=== PATIENT | female | born 1995 | race African-American/Black ===

== ENCOUNTER 2018-10-20 17:19 | Emergency (ER) | payer OTHER ==
[2018-10-20] MEDS ORDERED: METOCLOPRAMIDE 10 MG/2mL INJ ONE (18:02)
[2018-10-20] MEDS ORDERED: NA CHLORIDE 0.9% 1,000 ML ONE (18:03)
[2018-10-20 18:13] LABS: Urine Blood NEGATIVE (NEG); Urine Glucose NEGATIVE (NEG); Urine Protein TRACE (NEG); Urine pH 5.5 (5.0-7.0)
[2018-10-20 18:14] LABS: Absolute Lymphocytes (CBC) 2.4 K/uL (0.7-4.9); Basophils % 0.6 % (0-1.3); Eosinophils % 0.8 % (0-4.4); Hematocrit 40.9 % (36.0-45.0); Lymphocytes % 21.5 % (15.3-44.8); Monocytes % 7.9 % (3.3-12.3); RBC Red Blood Cell Count 4.82 M/uL (3.86-4.86)
[2018-10-20 18:28] LABS: Urine Bacteria <20 /HPF (<20); Urine Culture Reflex Order REFLEXED; Urine Mucus 2+ /HPF (NONE SEEN); Urine RBC <5 /HPF (NONE SEEN)
[2018-10-20 18:28] LABS: ALT/SGPT 107 U/L (12-78); AST/SGOT 28 U/L (15-37); Albumin 3.7 g/dL (3.4-5.0); Alkaline Phosphatase 101 U/L (45-117); BUN Blood Urea Nitrogen 7 mg/dL (7-18); Bicarbonate 23 mmol/L (21-32); Bilirubin Direct 0.1 mg/dL (0-0.2); Bilirubin Total 0.3 mg/dL (0.2-1.0); Glucose Level 83 mg/dL (74-106); Lipase 103 U/L (73-393); Potassium 3.5 mmol/L (3.5-5.1); Protein, Total 8.5 g/dL (6.4-8.2); Sodium Level 138 mmol/L (136-145)
--- NOTE | 2018-10-20 20:24 | ER ---
Nurse's Notes [facility] Name: Nayana Lemon Age: 22 yrs Sex: Female : 1995 Arrival Date: 10/20/2018 Time: 17:22 Bed 13 Private MD: Diagnosis: Vomiting;Urinary tract infection, site not specified Presentation: 10/20 17:32 Presenting complaint: Patient states: I am about 9 weeks and having a lot of la1 nausea and vomiting. Transition of care: patient was not received from another setting of care. Onset of symptoms was October 20, 2018. Risk Assessment: Do you want to hurt yourself or someone else? Patient reports no desire to harm self or others. Initial Sepsis Screen: Does the patient meet any 2 criteria? No. Patient's initial sepsis screen is negative. Does the patient have a suspected source of infection? No. Patient's initial sepsis screen is negative. Care prior to arrival: None. 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 - Social history:: Smoking status: Patient/guardian denies using tobacco. - Ebola Screening: : No symptoms or risks identified at this time. Screenin:05 Abuse screen: Denies threats or abuse. Denies injuries from another. Nutritional aj screening: No deficits noted. Tuberculosis screening: No symptoms or risk factors identified. Fall Risk None identified. Assessment: 18:05 General: Appears in no apparent distress. comfortable, Behavior is calm, cooperative, aj appropriate for age. Pain: Denies pain. Neuro: Level of Consciousness is awake, alert, obeys commands, Oriented to person, place, time, situation, Appropriate for age. Respiratory: Airway is patent Respiratory effort is even, unlabored, Respiratory pattern is regular, symmetrical. GI: Abdomen is non-distended, obese, Reports nausea, vomiting. Derm: Skin is intact, is healthy with good turgor, Skin is pink, warm \T\ dry. normal. Vital Signs: 17:30 BP 128 / 87; Pulse 74; Resp 16; Temp 97.4; Pulse Ox 98% on R/A; Weight 113.4 kg; Height la1 5 ft. 8 in. (172.72 cm); 18:45 BP 124 / 74; Pulse 81; Resp 16; Pulse Ox 99% on R/A; aj 20:13 BP 122 / 70; Pulse 79; Resp 19; Temp 97.8(O); Pulse Ox 99% on R/A; Pain 0/10; ls4 17:30 Body Mass Index 38.01 (113.40 kg, 172.72 cm) la1 ED Course: 17:22 Patient arrived in ED. rg4 17:31 Ko Workman PA is PHCP. jmm 17:31 Darien Morin MD is Attending Physician. jmm 17:31 Arm band placed on right wrist. la1 17:32 Triage completed. la1 17:33 Ko Workman PA is PHCP. olvin 17:33 Darien Morin MD is Attending Physician. jmm 17:45 Marya Langford, RN is Primary Nurse. aj 17:55 Urine collected: clean catch specimen, clear, elder colored. jp3 18:00 Initial lab(s) drawn, by ED staff, sent to lab. Patient maintains SpO2 saturation jp3 greater than 95% on room air. 18:05 Patient has correct armband on for positive identification. aj 18:05 No provider procedures requiring assistance completed. Inserted saline lock: 22 gauge aj in right hand, using aseptic technique. Blood collected. 18:06 Urine Microscopic Only Sent. em 19:53 Basic Metabolic Panel Sent. ls4 19:53 CBC with Diff Sent. ls4 19:53 Creatinine for Radiology Sent. ls4 20:35 IV discontinued, intact, bleeding controlled, No redness/swelling at site. ls4 Administered Medications: 18:04 Drug: NS 0.9% 1000 ml Route: IV; Rate: 1 bolus; Site: right hand; aj 19:54 Follow up: IV Status: Completed infusion; IV Intake: 1000ml ls4 18:04 Drug: Reglan 10 mg Route: IVP; Site: right hand; aj 19:53 Follow up: Response: No adverse reaction; Marked relief of symptoms ls4 Intake: 19:54 IV: 1000ml; Total: 1000ml. ls4 Outcome: 20:23 Discharge ordered by . olvin 20:49 Discharged to home ambulatory. ls4 20:49 Condition: good 20:49 Discharge instructions given to patient, family, Instructed on discharge instructions, follow up and referral plans. medication usage, Demonstrated understanding of instructions, follow-up care, medications. 20:50 Patient left the ED. ls4 Addendum: 10/23/2018 08:15 Addendum: Culture Results: Positive urine culture. Bacteria is resistant to, has s s intermediate sensitivity, or is not tested against prescribed antibiotics. Report given to KOURTNEY for further evaluation and then to display coordinator for follow up with patient. 16:31 Addendum: Culture Results: Phone call Attempt #1 No answer, Left VM. s s 16:32 Addendum: Culture Results: Phone call Attempt #1 Pt called back. Macrobid 100 mg PO BID s s x 10 days # 20 per Jelena Benavides NP, called in to pharmacy of choice, [facility]. Signatures: Marya Langford, RN RN Ko Salas PA PA jmm Munoz, Edgar, [employer] Georgette Santiago, MOISES RN ss Peng Melvin RN RN alfredo1 Kaylan Pinedo4 Jonny Del Castillo jp3 Becca Linda RN RN ls4
--- NOTE | 2018-10-20 20:24 | EDPHYS ---
Physician Documentation [facility] Name: Nayana Lemon Age: 22 yrs Sex: Female : 1995 Arrival Date: 10/20/2018 Time: 17:22 Bed 13 Private MD: ED Physician Darien Morin HPI: 10/20 17:41 This 22 yrs old Black Female presents to ER via Ambulatory with complaints of Vomiting. m 17:41 The patient presents to the emergency department with nausea, vomiting. Onset: The [facility] symptoms/episode began/occurred today. Possible causes: . The symptoms are aggravated by water The symptoms are alleviated by nothing. This is a 22 year old that presents to the ED with complaints of nausea and vomiting. Patient states taking otc vitamin b6 without relief. Patient denies abdominal pain, denies vaginal bleeding. Patient states she is able to tolerate tea and food but unable to drink water without vomiting. . 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 - Social history:: Smoking status: Patient/guardian denies using tobacco. - Ebola Screening: : No symptoms or risks identified at this time. ROS: 17:41 Constitutional: Negative for fever, chills, and weight loss. jmm 17:41 Abdomen/GI: Positive for nausea and vomiting, Negative for abdominal pain. 17:41 : Positive for urinary symptoms, Negative for vaginal bleeding. 17:41 All other systems are negative. Exam: 17:41 Constitutional: This is a well developed, well nourished patient who is awake, alert, jmm and in no acute distress. Head/Face: atraumatic. Eyes: EOMI, no conjunctival erythema appreciated ENT: Moist Mucus Membranes Neck: Trachea midline, Supple Chest/axilla: Normal chest wall appearance and motion. Cardiovascular: Regular rate and rhythm. No edema appreciated Respiratory: Normal respirations, no respiratory distress appreciated 17:41 Back: Normal ROM Skin: General appearance color normal MS/ Extremity: Moves all extremities, no obvious deformities appreciated, no edema noted to the lower extremities Neuro: Awake and alert, normal gait Psych: Behavior is normal, Mood is normal, Patient is cooperative and pleasant 17:41 Abdomen/GI: Inspection: abdomen appears normal, Bowel sounds: normal, Palpation: abdomen is soft and non-tender, in all quadrants. Vital Signs: 17:30 BP 128 / 87; Pulse 74; Resp 16; Temp 97.4; Pulse Ox 98% on R/A; Weight 113.4 kg; Height la1 5 ft. 8 in. (172.72 cm); 18:45 BP 124 / 74; Pulse 81; Resp 16; Pulse Ox 99% on R/A; aj 20:13 BP 122 / 70; Pulse 79; Resp 19; Temp 97.8(O); Pulse Ox 99% on R/A; Pain 0/10; ls4 17:30 Body Mass Index 38.01 (113.40 kg, 172.72 cm) la1 MDM: 17:41 Patient medically screened. [facility] 20:22 Data reviewed: vital signs, nurses notes. Counseling: I had a detailed discussion with [facility] the patient and/or guardian regarding: the historical points, exam findings, and any diagnostic results supporting the discharge/admit diagnosis, lab results, the need for outpatient follow up, to return to the emergency department if symptoms worsen or persist or if there are any questions or concerns that arise at home. ED course: Patient is advised to follow up with her pcp. Patient is able to tolerate po in the ED. Patient is alert and non toxic in appearance in the ED. Patient understood and agrees with the plan of care. . 20:22 ED course: Patient has no abdominal pain. I do not suspect an acute intrabdominal [facility] process. . 10/20 17:42 Order name: Basic Metabolic Panel [facility] 10/20 17:42 Order name: CBC with Diff [facility] 10/20 17:42 Order name: Creatinine for Radiology [facility] 10/20 17:42 Order name: Hepatic Function; Complete Time: 18:30 [facility] 10/20 17:42 Order name: Lipase; Complete Time: 18:30 [facility] 10/20 17:43 Order name: Basic Metabolic Panel; Complete Time: 18:30 [facility] 10/20 17:43 Order name: CBC with Automated Diff; Complete Time: 18:30 [facility] 10/20 17:43 Order name: Creatinine (Radiology Only); Complete Time: 18:30 [facility] 10/20 18:04 Order name: Urine Microscopic Only; Complete Time: 18:30 em 10/20 18:11 Order name: Urine Dipstick--Ancillary (enter results); Complete Time: 18:15 ag4 10/20 18:11 Order name: Urine --Ancillary (enter results); Complete Time: 18:15 ag4 10/20 18:30 Order name: Urine Culture [facility] 10/20 17:42 Order name: IV Saline Lock; Complete Time: 18:04 [facility] 10/20 17:42 Order name: Labs collected and sent; Complete Time: 18:04 [facility] 10/20 17:42 Order name: Urine Dipstick-Ancillary (obtain specimen); Complete Time: 18:04 [facility] 10/20 19:25 Order name: PO challenge; Complete Time: 19:53 [facility] Administered Medications: 18:04 Drug: NS 0.9% 1000 ml Route: IV; Rate: 1 bolus; Site: right hand; aj 19:54 Follow up: IV Status: Completed infusion; IV Intake: 1000ml 4 18:04 Drug: Reglan 10 mg Route: IVP; Site: right hand; aj 19:53 Follow up: Response: No adverse reaction; Marked relief of symptoms ls4 Disposition: 10/20/18 20:23 Discharged to Home. Impression: Vomiting, Urinary tract infection, site not specified. - Condition is Stable. - Discharge Instructions: Hyperemesis Gravidarum, Eating Plan for Hyperemesis Gravidarum, and Urinary Tract Infection, Asymptomatic Bacteriuria, Female. - Prescriptions for Zofran ODT 4 mg Oral tablet,disintegrating - place 1 tablet by TRANSLINGUAL route every 4-6 hours; 20 tablet. Cephalexin 500 mg Oral Capsule - take 1 capsule by ORAL route every 12 hours for 10 days; 20 capsule. - Medication Reconciliation Form, Thank You Letter, Antibiotic Education, Prescription Opioid Use form. - Follow up: Private Physician; When: 2 - 3 days; Reason: Recheck today's complaints, Continuance of care, Re-evaluation by your physician. Addendum: 10/22/2018 09:45 Co-signature as Attending Physician, Darien Morin MD I agree with the assessment and c nash plan of care. Signatures: Dispatcher [employer] [facility] Marya Langford RN RN aj Anderson, Corey, MD MD cha Mickail, Joel, PA PA jmm Attema, Lee, RN RN la1 Becca Linda RN RN ls4 Corrections: (The following items were deleted from the chart) 10/20 20:23 20:23 10/20/2018 20:23 Discharged to Home. Impression: Vomiting. Condition is Stable. [facility] Forms are Medication Reconciliation Form, Thank You Letter, Antibiotic Education, Prescription Opioid Use. Follow up: Private Physician; When: 2 - 3 days; Reason: Recheck today's complaints, Continuance of care, Re-evaluation by your physician. [facility] 20:50 20:23 10/20/2018 20:23 Discharged to Home. Impression: Vomiting; Urinary tract ls4 infection, site not specified. Condition is Stable. Forms are Medication Reconciliation Form, Thank You Letter, Antibiotic Education, Prescription Opioid Use. Follow up: Private Physician; When: 2 - 3 days; Reason: Recheck today's complaints, Continuance of care, Re-evaluation by your physician. [facility]
[2018-10-20 21:00] VITALS: O2SAT 99
[2018-10-20 21:02] VITALS: BP 122/70; TEMP 97.8
== END 2018-10-20 20:50 | disposition home or self-care (01) ==
LOC: ER 17:19
DX: O23.41 Unspecified infection of urinary tract in pregnancy, first trimester (principal); Z3A.09 9 weeks gestation of pregnancy
CPT/HCPCS: 36415; 80048; 80076; 81003; 81015; 81025; 83690; 85025; 87077; 87086; 87088; 87186; 96361; 96374; 99284; J2765; J7030

== ENCOUNTER 2022-04-03 14:20 | Emergency (ER) | payer OTHER ==
--- NOTE | 2022-04-03 14:48 | ER ---
Nurse's Notes [facility] Name: Nayana Lemon Age: 26 yrs Sex: Female : 1995 Arrival Date: 04/03/2022 Time: 14:25 Bed IW1 Private MD: Diagnosis: Acute pharyngitis, unspecified Presentation: 04/03 14:31 Chief complaint: Patient states: Sore throat X 4 days. Coronavirus screen: At this ld1 time, the client does not indicate any symptoms associated with coronavirus-19. Ebola Screen: No symptoms or risks identified at this time. Initial Sepsis Screen: Does the patient meet any 2 criteria? No. Patient's initial sepsis screen is negative. Does the patient have a suspected source of infection? No. Patient's initial sepsis screen is negative. Risk Assessment: Do you want to hurt yourself or someone else? Patient reports no desire to harm self or others. Onset of symptoms was April 03, 2022 at 14:32. 14:31 Method Of Arrival: Ambulatory ld1 14:31 Acuity: MEGAN 4 ld1 Triage Assessment: 14:32 General: Appears in no apparent distress. comfortable, Behavior is calm, cooperative, ld1 appropriate for age. Pain: Denies pain. EENT: Reports pain in uvula. Neuro: Level of Consciousness is awake, alert, obeys commands, Oriented to person, place, time, situation. Cardiovascular: Capillary refill < 3 seconds Patient's skin is warm and dry. Respiratory: Airway is patent Respiratory effort is even, unlabored. GI: Abdomen is round non-distended. : No signs and/or symptoms were reported regarding the genitourinary system. Derm: No signs and/or symptoms reported regarding the dermatologic system. Musculoskeletal: No signs and/or symptoms reported regarding the musculoskeletal system. 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 - Social history:: Smoking status: Patient denies any tobacco usage or history of. Patient/guardian denies using alcohol. Screenin:33 Abuse screen: Denies threats or abuse. Denies injuries from another. Nutritional ld1 screening: No deficits noted. Tuberculosis screening: No symptoms or risk factors identified. Fall Risk None identified. Assessment: 14:33 Reassessment: See triage assessment. ld1 15:23 Respiratory: Breath sounds are clear bilaterally. ld1 Vital Signs: 14:31 BP 131 / 82; Pulse 76; Resp 18; Temp 98.1(TE); Pulse Ox 100% on R/A; Weight 117.93 kg; ld1 Height 5 ft. 8 in. (172.72 cm); Pain 0/10; 14:31 Body Mass Index 39.53 (117.93 kg, 172.72 cm) ld1 ED Course: 14:25 Patient arrived in ED. rg4 14:27 Ko Workman PA is PHCP. olvin 14:27 Darien Morin MD is Attending Physician. [facility] 14:32 Triage completed. ld1 14:32 Arm band placed on right wrist. ld1 14:33 Patient has correct armband on for positive identification. Bed in low position. Call ld1 light in reach. Side rails up X2. Pulse ox on. NIBP on. Door closed. Noise minimized. 14:33 No provider procedures requiring assistance completed. Patient did not have IV access ld1 during this emergency room visit. 14:38 Strep Sent. ld1 Administered Medications: No medications were administered Medication: 14:33 VIS not applicable for this client. ld1 Outcome: 14:47 Discharge ordered by . [facility] 15:23 Discharged to home ambulatory. ld1 15:23 Condition: stable 15:23 Discharge instructions given to patient, Instructed on discharge instructions, follow up and referral plans. medication usage, Demonstrated understanding of instructions, follow-up care, medications, Prescriptions given X 1. 15:23 Patient left the ED. ld1 Signatures: Ko Workman PA PA jmm Garcia, Rubi rg4 Susie Carrasco, RN RN ld1
--- NOTE | 2022-04-03 14:48 | EDPHYS ---
Physician Documentation [facility] Name: Nayana Lemon Age: 26 yrs Sex: Female : 1995 Arrival Date: 04/03/2022 Time: 14:25 Bed IW1 Private MD: ED Physician Darien Morin HPI: 04/03 14:34 This 26 yrs old Black Female presents to ER via Ambulatory with complaints of Sore jmm Throat. 14:34 The patient presents with sore throat. Onset: The symptoms/episode began/occurred jmm gradually. Modifying factors: The symptoms are alleviated by nothing, the symptoms are aggravated by nothing. Associated signs and symptoms: Pertinent negatives fever. The patient has experienced similar episodes in the past. 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 - Social history:: Smoking status: Patient denies any tobacco usage or history of. Patient/guardian denies using alcohol. ROS: 14:34 Constitutional: Negative for fever, chills, and weight loss, Cardiovascular: Negative jmm for chest pain, palpitations, and edema, Respiratory: Negative for shortness of breath, cough, wheezing, and pleuritic chest pain. 14:34 ENT: Positive for sore throat. 14:34 All other systems are negative. Exam: 14:34 Constitutional: This is a well developed, well nourished patient who is awake, alert, jmm and in no acute distress. Head/Face: atraumatic. Eyes: EOMI, no conjunctival erythema appreciated 14:34 Neck: Trachea midline, Supple Chest/axilla: Normal chest wall appearance and motion. Cardiovascular: Regular rate and rhythm. No edema appreciated Respiratory: Normal respirations, no respiratory distress appreciated Abdomen/GI: Non distended Back: Normal ROM Skin: General appearance color normal MS/ Extremity: Moves all extremities, no obvious deformities appreciated, no edema noted to the lower extremities Neuro: Awake and alert Psych: Behavior is normal, Mood is normal, Patient is cooperative and pleasant 14:34 ENT: Posterior pharynx: erythema, that is mild. Vital Signs: 14:31 BP 131 / 82; Pulse 76; Resp 18; Temp 98.1(TE); Pulse Ox 100% on R/A; Weight 117.93 kg; ld1 Height 5 ft. 8 in. (172.72 cm); Pain 0/10; 14:31 Body Mass Index 39.53 (117.93 kg, 172.72 cm) ld1 MDM: 14:34 Counseling: I had a detailed discussion with the patient and/or guardian regarding: the [facility] historical points, exam findings, and any diagnostic results supporting the discharge/admit diagnosis, lab results, the need for outpatient follow up, to return to the emergency department if symptoms worsen or persist or if there are any questions or concerns that arise at home. 14:37 Patient medically screened. [facility] 14:39 Data reviewed: vital signs, nurses notes. [facility] 04/03 14:33 Order name: Strep; Complete Time: 17:43 [facility] 04/03 15:19 Order name: Throat Culture EDMS Administered Medications: No medications were administered Disposition Summary: 04/03/22 14:47 Discharge Ordered Location: Home [facility] Condition: Stable [facility] Diagnosis - Acute pharyngitis, unspecified [facility] Followup: [facility] - With: Private Physician - When: 2 - 3 days - Reason: Recheck today's complaints, Continuance of care, Re-evaluation by your physician Discharge Instructions: - Discharge Summary Sheet [facility] - Pharyngitis [facility] Forms: - Medication Reconciliation Form [facility] - Thank You Letter [facility] - Antibiotic Education [facility] - Prescription Opioid Use [facility] Prescriptions: - Amoxicillin 875 mg Oral Tablet - take 1 tablet by ORAL route every 12 hours for 10 days; 20 tablet; Refills: 0, [facility] Product Selection Permitted Signatures: Dispatcher [employer] EDMS Ko Workman PA PA jmm Dibbern, Lauren RN RN ld1
[2022-04-03 15:28] VITALS: BP 131/82; TEMP 98.1; O2SAT 100
== END 2022-04-03 15:23 | disposition home or self-care (01) ==
LOC: ER 14:20
DX: J02.9 Acute pharyngitis, unspecified (principal)
CPT/HCPCS: 87070; 87081; 99283

== ENCOUNTER 2023-08-23 21:49 | Emergency (ER) | payer OTHER ==
[2023-08-23] MEDS ORDERED: NA CHLORIDE 0.9% 1,000 ML ONE ×2 (22:17→23:17)
[2023-08-23] MEDS ORDERED: ONDANSETRON 4 MG/2 ML VIAL ONE (22:17)
[2023-08-23 22:57] LABS: Absolute Lymphocytes (CBC) 1.4 K/uL (0.7-4.9); Absolute Monocytes 0.8 K/uL (0.1-1.3); Absolute Neutrophil 8.9 K/uL (1.8-8.0); Basophils % 0.3 % (0-1.3); Eosinophils % 0.3 % (0-4.4); Hematocrit 39.7 % (36.0-45.0); Hemoglobin 13.1 g/dL (12.0-15.0); Lymphocytes % 12.7 % (15.3-44.8); MCH 27.3 pg (27.0-35.0); MCHC 32.9 g/dL (32.0-36.0); Monocytes % 7.5 % (3.3-12.3); Neutrophils % 79.2 % (41.7-73.7); Platelets 354 thou/uL (152-406); RBC Red Blood Cell Count 4.78 M/uL (3.86-4.86); Red Cell Distribution Width 14.4 % (12.1-15.2)
[2023-08-23 23:00] LABS: Specific Gravity > 1.030 (1.005-1.030); Urine Bacteria <20 /HPF (<20); Urine Bilirubin 1+ (Negative); Urine Blood Negative (Negative); Urine Clarity Turbid (Clear); Urine Color Dark-Yellow (Yellow); Urine Culture Reflex Order NOT NEEDED; Urine Glucose NEGATIVE (Negative); Urine Ketones 4+ (Over) (Negative); Urine Microscopic Reflex YN ORDER UMIC; Urine Mucus 4+ /HPF (None Seen); Urine Nitrite NEGATIVE (Negative); Urine Protein 1+ (Negative); Urine RBC <5 /HPF (None Seen); Urine Urobilinogen 3+ (Normal); Urine WBC <5 /HPF (<5)
[2023-08-23 23:01] LABS: Albumin 3.6 g/dL (3.4-5.0); Albumin/Globulin Ratio 0.7 (1.1-1.8); Bilirubin Total 0.9 mg/dL (0.2-1.0); Globulin 5.1 g/dL (2.3-3.5); Protein, Total 8.7 g/dL (6.4-8.2)
[2023-08-23] MEDS ORDERED: POTASSIUM 25 MEQ EFFERV TAB ONE (23:16)
[2023-08-23] MEDS ORDERED: NS KCL 20MEQ 1,000 ML IV ONE (23:17)
--- NOTE | 2023-08-24 00:18 | EDPHYS ---
Physician Documentation [facility] Name: Nayana Lemon Age: 27 yrs Sex: Female : 1995 Arrival Date: 08/23/2023 Time: 21:49 Bed 16 Private MD: ED Physician Darien oMrin HPI: 08/22 23:02 This 27 yrs old Black Female presents to ER via Ambulatory with complaints of lazaro Nausea/Vomiting, 8 WEEKS PREG. 23:02 The patient presents to the emergency department with nausea, vomiting, that is lazaro continuous, described as bilious. Onset: The symptoms/episode began/occurred 5 day(s) ago. Possible causes: . The symptoms are aggravated by nothing. The symptoms are alleviated by nothing. Severity of symptoms: At their worst the symptoms were moderate in the emergency department the symptoms are unchanged. The patient has not experienced similar symptoms in the past. 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 - Infectious Disease History:: Denies. - Social history:: Smoking status: Patient denies any tobacco usage or history of. - Family history:: not pertinent. ROS: 23:02 Constitutional: Negative for fever, chills, and weight loss, Eyes: Negative for injury, lazaro pain, redness, and discharge, ENT: Negative for injury, pain, and discharge, Neck: Negative for injury, pain, and swelling, Cardiovascular: Negative for chest pain, palpitations, and edema, Respiratory: Negative for shortness of breath, cough, wheezing, and pleuritic chest pain, Back: Negative for injury and pain, : Negative for injury, bleeding, discharge, and swelling, MS/Extremity: Negative for injury and deformity, Skin: Negative for injury, rash, and discoloration, Neuro: Negative for headache, weakness, numbness, tingling, and seizure, Psych: Negative for depression, anxiety, suicide ideation, homicidal ideation, and hallucinations, Allergy/Immunology: Negative for hives, rash, and allergies, Endocrine: Negative for neck swelling, polydipsia, polyuria, polyphagia, and marked weight changes, Hematologic/Lymphatic: Negative for swollen nodes, abnormal bleeding, and unusual bruising, 23:02 Abdomen/GI: Positive for nausea and vomiting, Exam: 23:02 Constitutional: This is a well developed, well nourished patient who is awake, alert, lazaro and in no acute distress. Head/Face: Normocephalic, atraumatic. Eyes: Pupils equal round and reactive to light, extra-ocular motions intact. Lids and lashes normal. Conjunctiva and sclera are non-icteric and not injected. Cornea within normal limits. Periorbital areas with no swelling, redness, or edema. ENT: Nares patent. No nasal discharge, no septal abnormalities noted. Tympanic membranes are normal and external auditory canals are clear. Oropharynx with no redness, swelling, or masses, exudates, or evidence of obstruction, uvula midline. Mucous membranes moist. Neck: Trachea midline, no thyromegaly or masses palpated, and no cervical lymphadenopathy. Supple, full range of motion without nuchal rigidity, or vertebral point tenderness. No Meningismus. Chest/axilla: Normal chest wall appearance and motion. Nontender with no deformity. No lesions are appreciated. Respiratory: Lungs have equal breath sounds bilaterally, clear to auscultation and percussion. No rales, rhonchi or wheezes noted. No increased work of breathing, no retractions or nasal flaring. Abdomen/GI: Soft, non-tender, with normal bowel sounds. No distension or tympany. No guarding or rebound. No evidence of tenderness throughout. Back: No spinal tenderness. No costovertebral tenderness. Full range of motion. Skin: Warm, dry with normal turgor. Normal color with no rashes, no lesions, and no evidence of cellulitis. MS/ Extremity: Pulses equal, no cyanosis. Neurovascular intact. Full, normal range of motion. Neuro: Awake and alert, GCS 15, oriented to person, place, time, and situation. Cranial nerves II-XII grossly intact. Motor strength 5/5 in all extremities. Sensory grossly intact. Cerebellar exam normal. Normal gait. 23:02 Cardiovascular: Rate: tachycardic, actual rate is 103 bpm, Rhythm: regular, Pulses: Pulses are 4+ in bilateral radial, brachial, femoral, popliteal, posterior tibial and and dorsalis pedis arteries.. Heart sounds: normal, Edema: is not appreciated, JVD: is not appreciated, Vital Signs: 22:02 BP 131 / 95; Pulse 103; Resp 18; Pulse Ox 99% ; Weight 122.47 kg; Height 5 ft. 8 in. ; vc1 Pain 7/10; 22:06 Temp 97.7; vc1 23:00 BP 130 / 87; Pulse 92; Resp 17 S; Pulse Ox 100% on R/A; jw7 08/23 00:08 BP 126 / 83; Pulse 90; Resp 16 S; Pulse Ox 98% on R/A; jw7 01:19 BP 108 / 67; Pulse 104; Resp 17; Temp 97.7; Pulse Ox 98% ; Pain 0/10; bm8 02:04 BP 115 / 74; Pulse 94; Resp 16 S; Pulse Ox 98% on R/A; jw7 08/22 22:02 Body Mass Index 41.05 (122.47 kg, 172.72 cm) vc1 08/22 22:02 Pain Scale: Adult vc1 01:19 Pain Scale: Adult bm8 MDM: 08/22 21:57 Patient medically screened. [facility] 23:11 Differential diagnosis: gastritis, pancreatitis, viral gastroenteritis, lazaro gastroenteritis. Data reviewed: vital signs, nurses notes, lab test result(s), EKG. Consideration of Admission/Observation Escalation of care including admission/observation considered. I considered the following discharge prescriptions or medication management in the emergency department Medications were administered in the Emergency Department. See MAR. Independent interpretation of the following test(s) in the Emergency Department. Test considered but Not performed: Ultrasound no abd usg. Care significantly affected by the following chronic conditions: preeclampsia. 08/22 21:57 Order name: CBC with Diff; Complete Time: 23: [facility] 08/22 21:57 Order name: Comprehensive Metabolic Panel; Complete Time: 23: [facility] 08/22 21:57 Order name: Urinalysis w/ reflexes; Complete Time: 23:01 [facility] 08/22 22:47 Order name: PREGU; Complete Time: 23: [facility] 08/22 23:42 Order name: PO challenge: juice; Complete Time: 23:45 lazaro Administered Medications: 22:26 Drug: NS 0.9% IV 1000 ml IV at 1 bolus Per protocol; 1000 mL bolus Route: IV; Rate: 1 jw7 bolus; Site: right antecubital; 08/23 00:06 Follow up: Response: No adverse reaction; IV Status: Completed infusion; IV Intake: jw7 1000ml 08/22 22:26 Drug: Ondansetron IVP 4 mg IVP once; over 2 minutes Route: IVP; Site: right antecubital;jw7 08/23 00:06 Follow up: Response: No adverse reaction; Marked relief of symptoms; Nausea is decreasedjw7 08/22 23:44 Drug: NS 0.9% IV 1000 ml IV at 1 bolus Per protocol; 1000 mL bolus Route: IV; Rate: 1 jw7 bolus; Site: right antecubital; 08/23 02:05 Follow up: Response: No adverse reaction; IV Status: Completed infusion; IV Intake: jw7 1000ml 08/22 23:44 Drug: NS 0.9% with KCl IV 20 mEq/L 1000 ml IV at 500 ml/hr continuous Route: IV; Rate: jw7 500 ml/hr; Site: right antecubital; 08/23 02:05 Follow up: Response: No adverse reaction; IV Status: Completed infusion; IV Intake: jw7 1000ml 08/22 23:45 Drug: Potassium PO Effervescent Tablet 50 mEq PO once; dissolve in 4 ounces of water or jw7 juice Route: PO; 08/23 02:05 Follow up: Response: No adverse reaction jw7 Disposition Summary: 08/24/23 00:17 Discharge Ordered Notes: Location: Home lazaro Problem: new lazaro Symptoms: have improved lazaro Condition: Stable lazaro Diagnosis - Hyperemesis gravidarum with metabolic disturbance lazaro - Vomiting lazaro - Hypokalemia lazaro - Dehydration lazaro Followup: lazaro - With: Private Physician - When: 2 - 3 days - Reason: Recheck today's complaints, Continuance of care, Re-evaluation by your physician Discharge Instructions: - Discharge Summary Sheet lazaro - Dehydration, Adult lazaro - Potassium Content of Foods lazaro - Hyperemesis Gravidarum lazaro - Morning Sickness, [id number] lazaro - Morning Sickness lazaro - Dehydration, Adult, [id number] lazaro - Hypokalemia lazaro - Vomiting, Adult lazaro Forms: - Medication Reconciliation Form lazaro - Antibiotic Education lazaro - Prescription Opioid Use lazaro - Patient Portal Instructions [facility] - Leadership Thank You Letter [facility] Prescriptions: - ondansetron 4 mg Oral Tablet,disintegrating - take 1 tablet ORAL route every 8 hours for 5 days; 20 tablet; Refills: 0, [facility] Product Selection Permitted - promethazine 25 mg Rectal suppository - insert 1 suppository RECTAL route every 6 hours as needed for nausea and lazaro vomiting; 20 suppository; Refills: 0, Product Selection Permitted - Potassium Chloride 20 meq Oral Packet - take 1 packet ORAL route once daily 1 packet in 6 (six) ounces of water or lazaro juice; Take after meal; 10 packet; Refills: 0, Product Selection Permitted Signatures: Dispatcher [employer] Darien Garcia MD MD cha Calcote, Vanessa RN RN vc1 Malinda Ochoa RN RN jw7
--- NOTE | 2023-08-24 00:18 | ER ---
Nurse's Notes [facility] Name: Nayana Lemon Age: 27 yrs Sex: Female : 1995 Arrival Date: 08/23/2023 Time: 21:49 Bed 16 Private MD: Diagnosis: Hyperemesis gravidarum with metabolic disturbance;Vomiting;Hypokalemia;Dehydration Presentation: 08/22 22:02 Chief complaint: Patient states: N/V, chest pain, chills. Coronavirus screen: Client vc1 denies travel out of the [place] in the last 14 days. chills, nausea, vomiting. Client presents with at least one sign or symptom that may indicate coronavirus-19. Ebola Screen: Patient negative for fever greater than or equal to 101.5 degrees Fahrenheit, and additional compatible Ebola Virus Disease symptoms Patient denies exposure to infectious person. Patient denies travel to an Ebola-affected area in the 21 days before illness onset. No symptoms or risks identified at this time. Initial Sepsis Screen: Does the patient meet any 2 criteria? No. Patient's initial sepsis screen is negative. Does the patient have a suspected source of infection? No. Patient's initial sepsis screen is negative. Risk Assessment: Do you want to hurt yourself or someone else? Patient reports no desire to harm self or others. Onset of symptoms was August 23, 2023. 22:02 Method Of Arrival: Ambulatory vc1 22:02 Acuity: MEGAN 3 vc1 Triage Assessment: 22:04 General: Appears in no apparent distress. uncomfortable, Behavior is calm, cooperative, vc1 appropriate for age. Pain: Complains of pain in upper abdomen (resolved). GI: Reports nausea, vomiting. 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 - Infectious Disease History:: Denies. - Social history:: Smoking status: Patient denies any tobacco usage or history of. - Family history:: not pertinent. Screenin:10 [facility] ED Fall Risk Assessment (Adult) History of falling in the last 3 months, jw7 including since admission No falls in past 3 months (0 pts) Confusion or Disorientation No (0 pts) Intoxicated or Sedated No (0 pts) Impaired Gait No (0 pts) Mobility Assist Device Used No (0 pt) Altered Elimination No (0 pt) Score/Fall Risk Level 0 - 2 = Low Risk Oriented to surroundings, Maintained a safe environment, Educated pt \T\ family on fall prevention, incl call for assistance when getting out of bed. Abuse screen: Denies threats or abuse. Denies injuries from another. Nutritional screening: No deficits noted. Tuberculosis screening: No symptoms or risk factors identified. Assessment: 22:10 General: Appears in no apparent distress. uncomfortable, Behavior is calm, cooperative. jw7 Pain: Complains of pain in abdomen Pain does not radiate. Pain currently is 0 out of 10 on a pain scale. at worst was 7 out of 10 on a pain scale. Quality of pain is described as throbbing, Pain began suddenly, Is intermittent, Alleviated by medications. Neuro: Level of Consciousness is awake, alert, obeys commands, Oriented to person, place, time, situation. Cardiovascular: Heart tones S1 S2 present Capillary refill < 3 seconds Patient's skin is warm and dry. Respiratory: Airway is patent Trachea midline Respiratory effort is even, unlabored, Respiratory pattern is regular, symmetrical. GI: Abdomen is round non-distended, Bowel sounds present X 4 quads. Abd is soft and non tender X 4 quads. Reports upper abdominal pain, nausea, vomiting. : No deficits noted. No signs and/or symptoms were reported regarding the genitourinary system. EENT: No deficits noted. No signs and/or symptoms were reported regarding the EENT system. Derm: Skin is intact, is healthy with good turgor, Skin is dry, Skin is normal, Skin temperature is warm. Musculoskeletal: Circulation, motion, and sensation intact. Range of motion: intact in all extremities. 23:00 Reassessment: Patient appears in no apparent distress at this time. No changes from jw7 previously documented assessment. Patient and/or family updated on plan of care and expected duration. Pain level reassessed. Patient is alert, oriented x 3, equal unlabored respirations, skin warm/dry/pink. 08/23 00:04 Reassessment: Patient appears in no apparent distress at this time. No changes from 7 previously documented assessment. Patient and/or family updated on plan of care and expected duration. Pain level reassessed. Patient is alert, oriented x 3, equal unlabored respirations, skin warm/dry/pink. 00:20 General: Discharge pending completion of IV Potassium. . jw7 01:19 Reassessment: pt is resting talking with friend waiting for medication administration bm8 to be done. denies pain at this time. 02:05 Reassessment: Patient appears in no apparent distress at this time. No changes from 7 previously documented assessment. Patient and/or family updated on plan of care and expected duration. Pain level reassessed. Patient is alert, oriented x 3, equal unlabored respirations, skin warm/dry/pink. Vital Signs: 08/22 22:02 BP 131 / 95; Pulse 103; Resp 18; Pulse Ox 99% ; Weight 122.47 kg; Height 5 ft. 8 in. ; vc1 Pain 7/10; 22:06 Temp 97.7; vc1 23:00 BP 130 / 87; Pulse 92; Resp 17 S; Pulse Ox 100% on R/A; jw7 08/23 00:08 BP 126 / 83; Pulse 90; Resp 16 S; Pulse Ox 98% on R/A; jw7 01:19 BP 108 / 67; Pulse 104; Resp 17; Temp 97.7; Pulse Ox 98% ; Pain 0/10; bm8 02:04 BP 115 / 74; Pulse 94; Resp 16 S; Pulse Ox 98% on R/A; jw7 08/22 22:02 Body Mass Index 41.05 (122.47 kg, 172.72 cm) vc1 08/22 22:02 Pain Scale: Adult vc1 01:19 Pain Scale: Adult bm8 ED Course: 08/22 21:51 Patient arrived in ED. gm2 21:56 Darien Morin MD is Attending Physician. [facility] 22:04 Triage completed. vc1 22:04 Arm band placed on right wrist. vc1 22:07 Malinda Ochoa RN is Primary Nurse. jw7 22:10 Patient has correct armband on for positive identification. Bed in low position. Call jw7 light in reach. Provided Education on: Use of Call LIght. 22:27 Missed attempt(s): 20 gauge in right antecubital area. Bleeding controlled, band aid rv1 applied, catheter tip intact. 22:27 Inserted saline lock: 22 gauge in right antecubital area, using aseptic technique. rv1 Blood collected. 22:27 Urinalysis w/ reflexes Sent. rv1 22:27 Comprehensive Metabolic Panel Sent. rv1 22:27 CBC with Diff Sent. rv1 08/23 00:05 No provider procedures requiring assistance completed. jw7 00:25 Awaiting: medication to finish for discharge. bm8 02:06 IV discontinued, intact, bleeding controlled, No redness/swelling at site. Pressure jw7 dressing applied. Administered Medications: 08/22 22:26 Drug: NS 0.9% IV 1000 ml IV at 1 bolus Per protocol; 1000 mL bolus Route: IV; Rate: 1 jw7 bolus; Site: right antecubital; 08/23 00:06 Follow up: Response: No adverse reaction; IV Status: Completed infusion; IV Intake: jw7 1000ml 08/22 22:26 Drug: Ondansetron IVP 4 mg IVP once; over 2 minutes Route: IVP; Site: right antecubital;jw7 08/23 00:06 Follow up: Response: No adverse reaction; Marked relief of symptoms; Nausea is decreasedjw7 08/22 23:44 Drug: NS 0.9% IV 1000 ml IV at 1 bolus Per protocol; 1000 mL bolus Route: IV; Rate: 1 jw7 bolus; Site: right antecubital; 08/23 02:05 Follow up: Response: No adverse reaction; IV Status: Completed infusion; IV Intake: jw7 1000ml 08/22 23:44 Drug: NS 0.9% with KCl IV 20 mEq/L 1000 ml IV at 500 ml/hr continuous Route: IV; Rate: jw7 500 ml/hr; Site: right antecubital; 08/23 02:05 Follow up: Response: No adverse reaction; IV Status: Completed infusion; IV Intake: jw7 1000ml 08/22 23:45 Drug: Potassium PO Effervescent Tablet 50 mEq PO once; dissolve in 4 ounces of water or jw7 juice Route: PO; 08/23 02:05 Follow up: Response: No adverse reaction jw7 Medication: 00:05 VIS not applicable for this client. jw7 Intake: 00:06 IV: 1000ml; Total: 1000ml. jw7 02:05 IV: 1000ml; Total: 2000ml. jw7 02:05 IV: 1000ml; Total: 3000ml. jw7 Outcome: 00:17 Discharge ordered by . lazaro 02:06 Discharged to home ambulatory, jw7 02:06 Condition: stable 02:06 Discharge instructions given to patient, Instructed on discharge instructions, follow up and referral plans. medication usage, Demonstrated understanding of instructions, follow-up care, medications, Prescriptions given X 3, 02:06 Patient left the ED. jw7 Signatures: Darien Morin MD MD cha Calcote, Vanessa RN RN 1 Malinda Ochoa RN RN jw7 Hattie Patterson1 Meli Lock 2 Johan Hernández, RN RN bm8
[2023-08-24 02:28] VITALS: BP 115/74; TEMP 97.7; O2SAT 98
== END 2023-08-24 02:06 | disposition home or self-care (01) ==
LOC: ER 21:49
DX: O21.1 Hyperemesis gravidarum with metabolic disturbance (principal); E86.0 Dehydration; Z3A.01 Less than 8 weeks gestation of pregnancy
CPT/HCPCS: 85025; 81001; 36415; 81025; 80053; J2405; J7030 ×2; J3480

== ENCOUNTER 2024-08-18 13:06 | Emergency (ER) | payer OTHER ==
[2024-08-18] MEDS ORDERED: NA CHLORIDE 0.9% 1,000 ML ONE (13:46)
[2024-08-18] MEDS ORDERED: ACETAMINOPHEN 500 MG TAB ONE (13:46)
[2024-08-18 13:58] LABS: Absolute Eosinophils 0.1 K/uL (0-0.5); Absolute Lymphocytes (CBC) 0.6 K/uL (0.7-4.9); Absolute Monocytes 0.6 K/uL (0.1-1.3); Basophils % 1.4 % (0-1.3); Hematocrit 38.7 % (36.0-45.0); Lymphocytes % 24.5 % (15.3-44.8); MCH 27.7 pg (27.0-35.0); MCHC 33.5 g/dL (32.0-36.0); MCV 82.6 fL (80-100); MPV 7.5 fL (7.6-11.3); Neutrophils % 43.1 % (41.7-73.7); Nucleated Red Blood Cells % 0.7 % (0-0); Platelets 244 thou/uL (152-406); RBC Red Blood Cell Count 4.69 M/uL (3.86-4.86); Red Cell Distribution Width 14.6 % (12.1-15.2)
[2024-08-18 14:07] LABS: Specific Gravity 1.024 (1.005-1.030)
[2024-08-18 14:10] LABS: Specific Gravity 1.024 (1.005-1.030); Sqamous Epithelial <5 /HPF (None Seen); Urine Bacteria <20 /HPF (<20); Urine Bilirubin NEGATIVE (Negative); Urine Blood Negative (Negative); Urine Clarity Clear (Clear); Urine Color Light-Yellow (Yellow); Urine Culture Reflex Order NOT NEEDED; Urine Glucose NEGATIVE (Negative); Urine Ketones NEGATIVE (Negative); Urine Microscopic Reflex YN ORDER UMIC; Urine Mucus Slight /HPF (None Seen); Urine Nitrite NEGATIVE (Negative); Urine Protein NEGATIVE (Negative); Urine RBC <5 /HPF (None Seen); Urine Urobilinogen Normal (Normal); Urine WBC <5 /HPF (<5); Urine pH 7.5 (5.0-7.0)
[2024-08-18 14:25] LABS: Albumin 3.7 g/dL (3.4-5.0); Albumin/Globulin Ratio 0.9 (1.1-1.8); Anion Gap 7.9 mEq/L (5.0-15.0); Bilirubin Total 0.3 mg/dL (0.2-1.0); Globulin 4.3 g/dL (2.3-3.5)
[2024-08-18 14:30] LABS: Potassium 3.9 mEq/L (3.5-5.1)
[2024-08-18 14:51] LABS: Influenza A Ag Negative; Influenza B Ag Negative; SARS-CoV-2 Antigen Rapid Res Negative (Negative)
[2024-08-18] MEDS ORDERED: DIPHENHYDRAMINE 25 MG TAB/CAP ONE (16:19)
[2024-08-18] MEDS ORDERED: FAMOTIDINE 20 MG/2 ML VIAL IV ONE (16:20)
--- NOTE | 2024-08-18 16:21 | RAD REPORT ---
EXAMINATION: CT ABDOMEN AND PELVIS WITH CONTRAST CLINICAL INDICATION: Abdominal pain. Flank pain TECHNIQUE: CT abdomen and pelvis was performed, after the administration of 100 cc Isovue-300.. Sagit rodriguez and coronal reconstructions were obtained. One or more of the following dose reduction techniques were used: Automated exposure control, adjustment of the mA and kV according to patient si ze, and iterative reconstruction. Unless otherwise specified, incidental findings do not require dedicated imaging follow-up. [id number]. Oral contrast was not given which limits evaluation of bowel and appendix. COMPARISON: .2022 FINDINGS: Liver, spleen, pancreas, adrenals and kidneys appear unremarkable No evidence of diverticulitis. Normal appendix. No adnexal mass. IUD in good position. : IMPRESSION: No acute abnormality displayed
--- NOTE | 2024-08-18 16:36 | ER ---
Nurse's Notes [facility] Name: Nayana Lemon Age: 28 yrs Sex: Female : 1995 Arrival Date: 08/18/2024 Time: 13:06 Bed 8 Private MD: Diagnosis: Nonpurulent mastitis associated with Presentation: 08/18 13:13 Chief complaint: Left low back pain that radiates to upper back and neck, chills, hb subjective fever, and nausea x 2-3 days. Coronavirus screen: At this time, the client does not indicate any symptoms associated with coronavirus-19. Ebola Screen: No symptoms or risks identified at this time. Initial Sepsis Screen: Does the patient meet any 2 criteria? No. Patient's initial sepsis screen is negative. Does the patient have a suspected source of infection? No. Patient's initial sepsis screen is negative. Risk Assessment: Do you want to hurt yourself or someone else? Patient reports no desire to harm self or others. Onset of symptoms was August 16, 2024. 13:13 Method Of Arrival: Ambulatory hb 13:13 Acuity: MEGAN 3 hb Historical: - Allergies: 13:15 No Known Allergies; hb - Home Meds: 13:15 None [Active]; hb - PMHx: 13:15 PREECLAMPSIA; hb - PSHx: 13:15 None; hb - Immunization history:: Adult Immunizations up to date. - Infectious Disease History:: Denies. - Social history:: Smoking status: Patient denies any tobacco usage or history of. Screenin:51 [facility] ED Fall Risk Assessment (Adult) History of falling in the last 3 months, kc6 including since admission No falls in past 3 months (0 pts) Confusion or Disorientation No (0 pts) Intoxicated or Sedated No (0 pts) Impaired Gait No (0 pts) Mobility Assist Device Used No (0 pt) Altered Elimination No (0 pt) Score/Fall Risk Level 0 - 2 = Low Risk Oriented to surroundings, Maintained a safe environment, Educated pt \T\ family on fall prevention, incl call for assistance when getting out of bed. Abuse screen: Denies threats or abuse. Denies injuries from another. Nutritional screening: No deficits noted. Tuberculosis screening: No symptoms or risk factors identified. Assessment: 13:52 General: Appears in no apparent distress. comfortable, well groomed, well developed, kc6 Behavior is calm, cooperative, appropriate for age, Reports chills for 12-24 hours, fever for 12-24 hours, feeling ill for 2-3 days. Pain: Complains of pain in back. Neuro: Level of Consciousness is awake, alert, obeys commands, Oriented to person, place, time, situation, Appropriate for age. Cardiovascular: Capillary refill < 3 seconds. Respiratory: Airway is patent Trachea midline Respiratory effort is even, unlabored, Respiratory pattern is regular, symmetrical. GI: Abdomen is round non-distended, Bowel sounds present X 4 quads. Abd is soft and non tender X 4 quads. Reports nausea, Patient currently denies abdominal pain, diarrhea, vomiting. : No signs and/or symptoms were reported regarding the genitourinary system. Urine is clear. EENT: No signs and/or symptoms were reported regarding the EENT system. Derm: No signs and/or symptoms reported regarding the dermatologic system. Skin is intact, is healthy with good turgor, Skin is pink, warm \T\ dry. Musculoskeletal: No signs and/or symptoms reported regarding the musculoskeletal system. Circulation, motion, and sensation intact. Range of motion: intact in all extremities. 14:49 Reassessment: Patient appears in no apparent distress at this time. No changes from kc6 previously documented assessment. Patient and/or family updated on plan of care and expected duration. Pain level reassessed. Patient is alert, oriented x 3, equal unlabored respirations, skin warm/dry/pink. 15:48 Reassessment: Patient appears in no apparent distress at this time. No changes from kc6 previously documented assessment. Patient and/or family updated on plan of care and expected duration. Pain level reassessed. Patient is alert, oriented x 3, equal unlabored respirations, skin warm/dry/pink. 16:58 Reassessment: Patient appears in no apparent distress at this time. Patient and/or jb4 family updated on plan of care and expected duration. Pain level reassessed. Patient is alert, oriented x 3, equal unlabored respirations, skin warm/dry/pink. Vital Signs: 13:13 BP 137 / 98; Pulse 108; Resp 16; Temp 99(O); Pulse Ox 100% on R/A; Weight 127.01 kg; hb Height 5 ft. 8 in. ; Pain 0/10; 14:49 BP 136 / 93; Pulse 100; Resp 18 S; Pulse Ox 99% on R/A; kc6 13:13 Body Mass Index 42.57 (127.01 kg, 172.72 cm) hb 13:13 Pain Scale: Adult hb ED Course: 13:10 Patient arrived in ED. sj2 13:10 Meri Caldwell PA-C is PHCP. sb4 13:10 Darien Morin MD is Attending Physician. sb4 13:15 Triage completed. hb 13:15 Arm band placed on. hb 13:23 Mónica Carr, RN is Primary Nurse. kc6 13:23 Aleksandr Torre, MOISES is Primary Nurse. jl7 13:51 Patient has correct armband on for positive identification. Bed in low position. Call kc6 light in reach. Side rails up X 1. Pulse ox on. NIBP on. Door closed. Noise minimized. Lights dimmed. Pillow given. Verbal reassurance given. 13:51 Initial lab(s) drawn, by me, sent to lab. Urine collected: clean catch specimen, clear, kc6 COVID swab sent to lab. Flu and/or RSV swab sent to lab. Strep swab sent to lab. Inserted saline lock: 20 gauge in right antecubital area, using aseptic technique. Blood collected. Flushed with 10 mL NS. Patient maintains SpO2 saturation greater than 95% on room air. 16:14 CT Abd/Pelvis - IV Contrast Only In Process Unspecified. EDMS 16:58 Provided Education on: discharge instructions.. jb4 16:58 No provider procedures requiring assistance completed. IV discontinued, intact, jb4 bleeding controlled, No redness/swelling at site. Pressure dressing applied. Administered Medications: 13:51 Drug: NS 0.9% IV 1000 ml IV at 1 bolus Per protocol; to be given as a bolus over 60 kc6 minutes Route: IV; Rate: 1 bolus; Site: right antecubital; 15:32 Follow up: Response: No adverse reaction; IV Status: Completed infusion; IV Intake: kc6 1000ml 13:51 Drug: Acetaminophen PO 1000 mg PO once Route: PO; kc6 16:18 CANCELLED (Physician Discretion): [id number] mg IVP once sb4 16:20 Drug: Famotidine IVP 20 mg IVP once; dilute with 10 mL 0.9% NaCl; give over 2 minutes jb4 Route: IVP; Site: right antecubital; 16:20 Drug: diphenhydrAMINE PO 25 mg PO once Route: PO; jb4 Medication: 16:58 VIS not applicable for this client. jb4 Intake: 15:32 IV: 1000ml; Total: 1000ml. kc6 Outcome: 16:36 Discharge ordered by . sb4 16:58 Discharged to home ambulatory, jb4 16:58 Condition: stable 16:58 Discharge instructions given to patient, Instructed on discharge instructions, follow up and referral plans. medication usage, Demonstrated understanding of instructions, follow-up care, medications, Prescriptions given X 1, 16:59 Patient left the ED. jb4 Signatures: Dispatcher [employer] EDMS Taylor Macdonald, RN RN Jovan Davila RN RN jb4 Aleksandr Torre RN RN jl7 Mónica Carr RN RN kc6 Meri Caldwell PA-C PABharat sb4 Peyton Pena [facility]
--- NOTE | 2024-08-18 16:36 | EDPHYS ---
Physician Documentation [facility] Name: Nayana Lemon Age: 28 yrs Sex: Female : 1995 Arrival Date: 08/18/2024 Time: 13:06 Bed 8 Private MD: ED Physician Darien Morin HPI: 08/18 14:26 This 28 yrs old Black Female presents to ER via Ambulatory with complaints of Flu sb4 Symptoms. 14:29 patient reports left low back pain x 2 weeks. denies injury. also reports intermittent sb4 nausea. went to PCP last week, had negative UA. states now she has had intermittent chills and "feeling hot" no vomiting, diarrhea, chest pain, sob. Historical: - Allergies: 13:15 No Known Allergies; hb - Home Meds: 13:15 None [Active]; hb - PMHx: 13:15 PREECLAMPSIA; hb - PSHx: 13:15 None; hb - Immunization history:: Adult Immunizations up to date. - Infectious Disease History:: Denies. - Social history:: Smoking status: Patient denies any tobacco usage or history of. ROS: 14:29 ENT: Negative for injury, pain, and discharge, sb4 14:29 Constitutional: Positive for chills, fever, 14:29 Abdomen/GI: Positive for nausea, 14:29 Back: Positive for pain at rest, of the left low back, 14:29 All other systems are negative, Exam: 14:29 Constitutional: This is a well developed, well nourished patient who is awake, alert, sb4 and in no acute distress. Head/Face: Normocephalic, atraumatic. Eyes: Extra-ocular motions intact. Periorbital areas with no swelling, redness, or edema. ENT: Mucous membranes moist. Cardiovascular: Regular rate and rhythm with a normal S1 and S2. Respiratory: No increased work of breathing, no retractions or nasal flaring. Abdomen/GI: Soft, non-tender, no distension. Back: No spinal tenderness. No costovertebral tenderness. Full range of motion. Skin: Warm, dry with normal turgor. Normal color with no rashes, no lesions, and no evidence of cellulitis. 16:38 Chest/axilla: Breasts: swelling, tenderness, that is mild of the left breast, sb4 Vital Signs: 13:13 BP 137 / 98; Pulse 108; Resp 16; Temp 99(O); Pulse Ox 100% on R/A; Weight 127.01 kg; hb Height 5 ft. 8 in. ; Pain 0/10; 14:49 BP 136 / 93; Pulse 100; Resp 18 S; Pulse Ox 99% on R/A; kc6 13:13 Body Mass Index 42.57 (127.01 kg, 172.72 cm) hb 13:13 Pain Scale: Adult hb MDM: 13:11 Medical Screening Exam initiated sb4 16:38 Data reviewed: vital signs, nurses notes, lab test result(s), radiologic studies, and sb4 as a result, I will discharge patient. Counseling: I had a detailed discussion with the patient and/or guardian regarding the historical points, exam findings, and any diagnostic results supporting the discharge/admit diagnosis, lab results, radiology results, the need for outpatient follow up, for definitive care, to return to the emergency department if symptoms worsen or persist or if there are any questions or concerns that arise at home. 08/18 13:28 Order name: COVID-19 Ag + Flu A+B Ag; Complete Time: 14:53 sb4 08/18 13:28 Order name: Group A Streptococcus Rapid; Complete Time: 14:35 sb4 08/18 13:28 Order name: CBC with Diff sb 08/18 13:28 Order name: CMP; Complete Time: 14:33 sb4 08/18 13:28 Order name: Test, Urine; Complete Time: 14:09 sb4 08/18 13:28 Order name: Urinalysis w/ reflexes; Complete Time: 14:13 sb4 08/18 14:37 Order name: Throat Culture [facility] 08/18 15:31 Order name: CT Abd/Pelvis - IV Contrast Only; Complete Time: 16:22 sb4 08/18 13:28 Order name: IV Saline Lock; Complete Time: 13:51 sb4 08/18 13:28 Order name: Labs collected and sent; Complete Time: 13:51 sb4 Administered Medications: 13:51 Drug: NS 0.9% IV 1000 ml IV at 1 bolus Per protocol; to be given as a bolus over 60 kc6 minutes Route: IV; Rate: 1 bolus; Site: right antecubital; 15:32 Follow up: Response: No adverse reaction; IV Status: Completed infusion; IV Intake: kc6 1000ml 13:51 Drug: Acetaminophen PO 1000 mg PO once Route: PO; kc6 16:18 CANCELLED (Physician Discretion): [id number] mg IVP once sb4 16:20 Drug: Famotidine IVP 20 mg IVP once; dilute with 10 mL 0.9% NaCl; give over 2 minutes jb4 Route: IVP; Site: right antecubital; 16:20 Drug: diphenhydrAMINE PO 25 mg PO once Route: PO; jb4 Disposition Summary: 08/18/24 16:36 Discharge Ordered Notes: Location: Home sb4 Problem: new sb4 Symptoms: have improved sb4 Condition: Stable sb4 Diagnosis - Nonpurulent mastitis associated with sb4 Followup: sb4 - With: Emergency Department - When: As needed - Reason: Fever > 102 F, Worsening of condition Discharge Instructions: - Discharge Summary Sheet sb4 - and Mastitis sb4 Forms: - Antibiotic Education sb4 - Patient Portal Instructions sb4 - Leadership Thank You Letter sb4 Prescriptions: - Dicloxacillin 500 mg Oral Capsule - take 1 capsule ORAL route every 6 hours for 10 days; 40 capsule; Refills: 0, sb4 Product Selection Permitted Addendum: 08/20/2024 14:49 Co-signature as Attending Physician, Darien Morin MD I agree with the assessment and c nash plan of care. Signatures: Dispatcher [employer] Darien Garcia MD MD cha Baxter, Heather, RN Jovan Larson RN RN jb4 Mónica Carr RN RN kc6 Meri Caldwell PA-C PABharat sb4 Corrections: (The following items were deleted from the chart) 08/18 16:18 16:15 diphenhydrAMINE IVP 25 mg IVP once ordered. sb4 sb4
[2024-08-18 17:20] VITALS: TEMP 99
[2024-08-18 17:22] VITALS: BP 136/93; O2SAT 99
[2024-08-18 18:43] LABS: Blood Morphology Comment NOT SEEN (NOT SEEN); Differential Total Cells Count 100; Eosinophils 2 % (0-3); Lymphocytes 25 % (15-42); Monocytes 30 % (0-10); Platelet Estimate ADEQ; Segmented Neutrophils 43 % (40-80)
== END 2024-08-18 16:59 | disposition home or self-care (01) ==
LOC: ER 13:06
DX: O91.23 Nonpurulent mastitis associated with lactation (principal); M54.50 Low back pain, unspecified; Z11.52 Encounter for screening for COVID-19
CPT/HCPCS: 96361; 87070; 85025; 81001; 36415; 81025; 80053; 74177; 96374; 99284; 87428; Q9967; J7030